=== PATIENT | female | born 1935 | race Caucasian/White ===

== ENCOUNTER 2018-04-06 12:06 | Inpatient (IN) | payer MEDICARE, BC ==
[~2018-04-06] VITALS: Ht 157.5 cm; Wt 51.8 kg
[2018-04-06 13:03] LABS: BASO # 0.2 (0.0-0.2); BASO % 1.3 % (0.0-2.0); EOS # 0.6 (0.0-0.7); EOS % 4.2 % (0-4.0); GRAN # 10.5 (1.4-6.5); GRAN % 78.1 % (42.2-75.2); HEMATOCRIT 44.1 % (37.0-47.0); LYMPH # 1.5 (1.2-3.4); MEAN CELL VOLUME 84 fl (80.0-100.0); MEAN CORPUSCULAR HEMOGLOBIN 29 pg (27.0-31.0); MEAN CORPUSCULAR HGB CONC 34 g/dl (33.0-37.0); MEAN PLATELET VOLUME 10.5 fl (7.4-10.4); MONO # 0.7 (0.1-0.6); MONO % 5.1 % (1.7-9.3); PLATELET COUNT 391 K/mm3 (130-400); RED BLOOD COUNT 5.26 M/mm3 (4.10-5.30); REDCELL DISTRIBUTION WIDTH-CV 13.2 % (11.5-14.5)
[2018-04-06] MEDS ORDERED: TYLENOL 500MG500 MG PO (13:08)
[2018-04-06] MEDS ORDERED: INDERAL80 MG PO (13:09)
[2018-04-06] MEDS ORDERED: NORVASC 10MG10 MG PO (13:09)
[2018-04-06 13:35] LABS: ALBUMIN 4.1 gm/dL (3.5-5.0); BILIRUBIN,TOTAL 0.8 mg/dL (0.0-1.0); CALCIUM 10.4 mg/dL (8.4-10.2); CREATININE, serum 1.33 mg/dL (0.52-1.25); POTASSIUM 4.2 mmol/L (3.4-5.0); TOTAL PROTEIN 8.2 gm/dL (6.4-8.2)
[2018-04-06 14:04] VITALS: BP 166/58; PULSE 69; TEMP 97.8
[2018-04-06 14:12] LABS: PROTHROMBIN TIME 11.8 SECONDS (9.7-12.8)
[2018-04-06 15:42] LABS: COLLECTION METHOD CLEAN CATCH
[2018-04-06 15:58] LABS: MUCOUS Present /lpf; PH 5 (5-8); SQUAMOUS EPITHELIAL 0-2 /hpf; URINE APPEARANCE Hazy; URINE BACTERIA Rare /hpf; URINE BILIRUBIN Negative (NEGATIVE); URINE BLOOD 1+ (NEGATIVE); URINE COLOR Yellow; URINE GLUCOSE Negative (NEGATIVE); URINE KETONE Trace (NEGATIVE); URINE LEUKOCYTE ESTERASE Negative (NEGATIVE); URINE NITRATE Negative (NEGATIVE); URINE PROTEIN(semi-quant) 3+ (NEGATIVE); URINE RBC 0-2 /hpf; URINE UROBILINOGEN Negative (NEGATIVE)
[2018-04-06 20:07] VITALS: BP 167/76; PULSE 68; TEMP 98.3
[2018-04-07] VITALS (13 sets, daily range): BP systolic 117–185; BP diastolic 43–66; PULSE 59–86; TEMP 98.2–98.6
[2018-04-07 06:19] LABS: BASO # 0.1 (0.0-0.2); BASO % 1.3 % (0.0-2.0); EOS # 0.5 (0.0-0.7); EOS % 6.1 % (0-4.0); GRAN # 5.8 (1.4-6.5); GRAN % 71.6 % (42.2-75.2); LYMPH # 1.1 (1.2-3.4); LYMPH % 13.3 % (20.0-51.0); MEAN CELL VOLUME 86 fl (80.0-100.0); MEAN CORPUSCULAR HGB CONC 33 g/dl (33.0-37.0); MEAN PLATELET VOLUME 10.7 fl (7.4-10.4); MONO # 0.6 (0.1-0.6); MONO % 7.5 % (1.7-9.3); PLATELET COUNT 321 K/mm3 (130-400); RED BLOOD COUNT 4.13 M/mm3 (4.10-5.30); REDCELL DISTRIBUTION WIDTH-CV 13.1 % (11.5-14.5)
[2018-04-07 06:22] LABS: HEMATOCRIT 35.7 % (37.0-47.0); HEMOGLOBIN 11.9 g/dl (12.5-16.0); MEAN CORPUSCULAR HEMOGLOBIN 29 pg (27.0-31.0)
[2018-04-07 06:36] LABS: CALCIUM 9.1 mg/dL (8.4-10.2); CREATININE, serum 1.19 mg/dL (0.52-1.25); POTASSIUM 3.7 mmol/L (3.4-5.0)
[2018-04-08] VITALS (8 sets, daily range): BP systolic 128–148; BP diastolic 40–84; PULSE 64–80; TEMP 97.7–99.1
[2018-04-08 07:22] LABS: HEMOGLOBIN 11.5 g/dl (12.5-16.0)
[2018-04-08 07:28] LABS: HEMATOCRIT 36.2 % (37.0-47.0)
[2018-04-08 10:43] LABS: CREATININE, serum 1.41 mg/dL (0.52-1.25); POTASSIUM 3.7 mmol/L (3.4-5.0)
[2018-04-09 03:44] VITALS: BP 165/54; PULSE 71; TEMP 98.1
[2018-04-09 07:06] VITALS: BP 150/45; PULSE 69; TEMP 99
[2018-04-09 07:24] LABS: BASO # 0.1 (0.0-0.2); BASO % 0.5 % (0.0-2.0); EOS # 0.6 (0.0-0.7); EOS % 6.5 % (0-4.0); GRAN # 7.5 (1.4-6.5); GRAN % 77.7 % (42.2-75.2); HEMOGLOBIN 10.4 g/dl (12.5-16.0); LYMPH # 0.7 (1.2-3.4); LYMPH % 7.1 % (20.0-51.0); MEAN CELL VOLUME 88 fl (80.0-100.0); MEAN CORPUSCULAR HEMOGLOBIN 29 pg (27.0-31.0); MEAN CORPUSCULAR HGB CONC 33 g/dl (33.0-37.0); MEAN PLATELET VOLUME 11.3 fl (7.4-10.4); MONO # 0.7 (0.1-0.6); MONO % 7.7 % (1.7-9.3); PLATELET COUNT 223 K/mm3 (130-400); RED BLOOD COUNT 3.61 M/mm3 (4.10-5.30); REDCELL DISTRIBUTION WIDTH-CV 13.5 % (11.5-14.5)
[2018-04-09 07:27] LABS: CALCIUM 8.7 mg/dL (8.4-10.2); CREATININE, serum 1.54 mg/dL (0.52-1.25); POTASSIUM 3.6 mmol/L (3.4-5.0)
[2018-04-09 07:33] LABS: HEMATOCRIT 31.7 % (37.0-47.0)
[2018-04-09 12:38] VITALS: BP 153/51; PULSE 70; TEMP 99
[2018-04-09 16:00] VITALS: BP 145/52; PULSE 70; TEMP 98.8
[2018-04-09 18:04] VITALS: BP 145/52; PULSE 70; TEMP 98.8
[2018-04-09 20:00] VITALS: BP 136/69; PULSE 69; TEMP 98.1
[2018-04-10 04:00] VITALS: BP 156/66; PULSE 74; TEMP 98.1
[2018-04-10 06:16] LABS: BASO # 0.1 (0.0-0.2); BASO % 0.5 % (0.0-2.0); EOS # 1.2 (0.0-0.7); EOS % 12.4 % (0-4.0); GRAN # 7.1 (1.4-6.5); GRAN % 73.6 % (42.2-75.2); HEMOGLOBIN 10.9 g/dl (12.5-16.0); LYMPH # 0.7 (1.2-3.4); LYMPH % 7.4 % (20.0-51.0); MEAN CELL VOLUME 88 fl (80.0-100.0); MEAN CORPUSCULAR HEMOGLOBIN 29 pg (27.0-31.0); MEAN CORPUSCULAR HGB CONC 33 g/dl (33.0-37.0); MEAN PLATELET VOLUME 11.2 fl (7.4-10.4); MONO # 0.5 (0.1-0.6); MONO % 5.6 % (1.7-9.3); PLATELET COUNT 260 K/mm3 (130-400); RED BLOOD COUNT 3.76 M/mm3 (4.10-5.30); REDCELL DISTRIBUTION WIDTH-CV 13.7 % (11.5-14.5)
[2018-04-10 06:21] LABS: HEMATOCRIT 33.1 % (37.0-47.0)
[2018-04-10 06:28] LABS: CALCIUM 9.3 mg/dL (8.4-10.2); CREATININE, serum 1.78 mg/dL (0.52-1.25); POTASSIUM 3.9 mmol/L (3.4-5.0)
[2018-04-10 08:10] VITALS: BP 155/65; PULSE 73; TEMP 98.1
[2018-04-10] MEDS ORDERED: MULTI VITAMINS1 TAB PO (09:43)
[2018-04-10] MEDS ORDERED: OYSCO 500500 M1 PO (09:43)
[2018-04-10] MEDS ORDERED: VITAMINC1000TA PO (09:43)
[2018-04-10] MEDS ORDERED: ASPI325T6 PO (11:19)
[2018-04-10] MEDS ORDERED: NATURAL IRON65 MG PO (11:20)
[2018-04-10] MEDS ORDERED: NORCO 325 MG-51 TAB PO (11:21)
[2018-04-10 11:41] VITALS: BP 155/65; PULSE 73; TEMP 98.1
== END 2018-04-10 13:44 | disposition swing bed (61) | DRG 470 ==
LOC: COL.ER 12:06 → SURG 12:56
PROVIDERS: Emergency Medicine; Internal Medicine; Nurse Practitioner Family; Orthopaedic Surgery Sports Medicine
PROC: 0SRS0J9 Replacement of Left Hip Joint, Femoral Surface with Synthetic Substitute, Cemented, Open Approach (ICD-10-PCS; principal; 2018-04-07 14:30)
DX: S72.012A Unspecified intracapsular fracture of left femur, initial encounter for closed fracture (principal); E87.1 Hypo-osmolality and hyponatremia; W18.30XA Fall on same level, unspecified, initial encounter; I12.9 Hypertensive chronic kidney disease with stage 1 through stage 4 chronic kidney disease, or unspecified chronic kidney disease; N18.9 Chronic kidney disease, unspecified; E83.52 Hypercalcemia; D64.9 Anemia, unspecified; R13.10 Dysphagia, unspecified
CPT/HCPCS: 99231-AI; 99232-AI; 99239; A9284; C1776; J0360; J0690; J1200; J2250; J2270; J2405; J2704; J3010; J7030; J7120